=== PATIENT | female | born 1975 | race African-American/Black ===

== ENCOUNTER 2018-10-09 20:35 | Emergency (ER) | payer OTHER ==
[~2018-10-09] VITALS: Ht 167.6 cm; Wt 154.2 kg
[~2018-10-09 20:35] MED LIST: BACITRACIN ZIN1 EACH TOPIC; CEPHALEXIN500 MG PO; GUAIFENESIN DM118 M1 PO; IBUPROFEN600 MG PO; NKM; PEPCID40 MG PO
[2018-10-09 21:00] VITALS: BP 126/76
[2018-10-09] MEDS ORDERED: NKM (21:01)
[2018-10-09] MEDS ORDERED: Albuterol/Ipratropium 3ml neb HHN ONE (21:15)
--- NOTE | 2018-10-09 21:17 | Emergency Room Report ---
History of Present Illness General Chief Complaint: Upper Respiratory Illness Source: Patient Present Illness HPI Is a 42-year-old female presented after increased congestion and difficulty breathing. Patient prior history of asthma. She had been diagnosed approximate 1 year ago. She had been noted to have increased difficulty with breathing. She has increased nonproductive cough. She had been taking albuterol without much improvement. Patient was taking albuterol as well as inhaled corticosteroid. She denies any fever.She denies any other medical conditions. Allergies: Coded Allergies: No Known Allergies (Unverified , 08/09/12) Patient History Past Medical History: see triage record Last Menstrual Period: 09/26/2018 Now: No Reviewed Nursing Documentation: PMH: Agreed; PSxH: Agreed Nursing Documentation-PMH Past Medical History: No History, Except For Review of Systems All Other Systems: negative except mentioned in HPI Physical Exam Vital Signs Date Time Temp Pulse Resp B/P (MAP) Pulse Ox O2 Delivery O2 Flow Rate FiO2 10/09/18 20:56 98.2 97 16 126/76 98 Room Air General Appearance: well appearing, no apparent distress, alert, GCS 15, obese Head: normocephalic, atraumatic ENT: hearing grossly normal, normal voice Neck: full range of motion, supple Respiratory: no respiratory distress, speaking full sentences, wheezing Cardiovascular #1: normal inspection, regular rate, rhythm, edema Gastrointestinal: normal inspection, normal bowel sounds, non tender, soft Musculoskeletal: normal inspection, no calf tenderness Neurologic: normal inspection, alert, oriented x3, responsive, normal gait Psychiatric: mood/affect normal Skin: no rash Medical Decision Making Diagnostic Impression: Primary Impression: Upper respiratory infection Additional Impression: Asthma ER Course Patient presented for cough and difficulty breathing. Differential diagnosis included but was not limited to bronchitis, pneumonia, pulmonary embolism, pericarditis, asthma, foreign body. Patient is given nebulized albuterol with improvement. Patient was given steroids. Repeat lung exam showed improved breath sounds.Patient given prescription for medications for asthma. Patient advised to follow-up with her primary care physician for recheck. Last Vital Signs Date Time Temp Pulse Resp B/P (MAP) Pulse Ox O2 Delivery O2 Flow Rate FiO2 10/09/18 20:56 98.2 97 16 126/76 98 Room Air Status: improved Disposition: HOME, SELF-CARE Condition: Stable Scripts Prednisone* (PREDNISONE*) 20 Mg Tablet 40 MG ORAL DAILY, #10 TAB Prov: Tye Verduzco MD 10/09/18 Guaifenesin/Dextromethorphan (Guaifenesin Dm Syrup) 5 Ml Syrup 1 TSP ORAL Q8H, #118 ML 0 Refills Prov: Tye Verduzco MD 10/09/18 Tye Verduzco MD Oct 09, 2018 21:17
[2018-10-09] MEDS ORDERED: PREDNISONE20 MG ORAL (21:18)
[2018-10-09] MEDS ORDERED: GUAIFENESIN DM118 M1 ORAL (21:18)
[2018-10-10 00:20] VITALS: BP 126/76
--- NOTE | 2018-10-10 00:20 | NUR ---
ER DISCHARGE NOTE: Patient is cleared to be discharged per ERMD, pt is aox4, on room air, with stable vital signs. Accompanied by family member. pt was given dc and prescription instructions, pt was able to verbalize understanding, pt id band and iv site removed without complications. pt is able to ambulate with steady gait. pt took all belongings.
== END 2018-10-10 00:20 | disposition home or self-care (01) ==
LOC: EMR 21:14
DX: J06.9 Acute upper respiratory infection, unspecified (principal); J45.909 Unspecified asthma, uncomplicated
CPT/HCPCS: 81025; 94640; 94664; 99284; J7620

== ENCOUNTER 2020-02-24 16:32 | Emergency (ER) | payer OTHER ==
[~2020-02-24] VITALS: Ht 167.6 cm; Wt 172.4 kg
[~2020-02-24 16:32] MED LIST changes: +GUAIFENESIN DM118 M1 ORAL; +PREDNISONE20 MG ORAL
[2020-02-24 16:53] VITALS: BP 148/72
--- NOTE | 2020-02-24 16:57 | Emergency Room Report ---
History of Present Illness General Chief Complaint: Upper Respiratory Illness Source: Patient Present Illness HPI 44-year-old female, past mostly of asthma never been intubated never been placed in ICU presents with shortness of breath chest tightness since 02/15/2020 patient states she had a positive COVID test she has been having cough, subjective fever/chills, patient states her children are also sick, patient presents for evaluation and treatment she denies any aggravating relieving factors of the shortness of breath severity is moderate, constant no nausea no vomiting no abdominal pain Allergies: Coded Allergies: No Known Allergies (Unverified , 08/09/12) COVID-19 Screening Contact w/high risk pt: No Experienced COVID-19 symptoms?: Yes COVID-19 Testing 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: Yes - 02/15/20 COVID-19 Screening: Positive COVID-19 COVID-19 Testing Source: Nasopharynx Patient History Past Medical History: see triage record Last Menstrual Period: 01/31/20 Now: No Reviewed Nursing Documentation: PMH: Agreed; PSxH: Agreed Nursing Documentation-PMH Hx Asthma: Yes Review of Systems All Other Systems: negative except mentioned in HPI Physical Exam Vital Signs Date Time Temp Pulse Resp B/P (MAP) Pulse Ox O2 Delivery O2 Flow Rate FiO2 02/24/20 16:46 98.8 89 20 152/76 (101) 99 Room Air Sp02 EP Interpretation: reviewed, normal General Appearance: well appearing, no apparent distress, alert Head: normocephalic, atraumatic Eyes: bilateral eye PERRL, bilateral eye EOMI ENT: uvula midline, moist mucus membranes Neck: supple, thyroid normal, supple/symm/no masses Respiratory: no respiratory distress, no retraction, no accessory muscle use, decreased breath sounds Cardiovascular #1: normal peripheral pulses, regular rate, rhythm, no edema, no gallop, no murmur Gastrointestinal: non tender, soft, no guarding, no rebound Musculoskeletal: normal inspection Neurologic: alert, oriented x3 Psychiatric: mood/affect normal Skin: no rash, warm/dry Medical Decision Making Diagnostic Impression: Primary Impression: COVID-19 ER Course 44-year-old female presents with shortness of breath differential diagnosis includes asthma exacerbation, COVID-19, pneumonia Patient was offered admission due to her respiratory shortness of breath and having a positive COVID test, patient states she cannot be admitted she states she has to take care of her kids at home she just wants a work-up some supportive treatment and to go home Chest x-ray ordered, bilateral opacities noted, EKG normal sinus rhythm, labs unremarkable patient given Decadron, and Combivent with improvement in sob Strict return precautions were discussed, patient was offered admission, but patient has to take care of kids. Laboratory Tests Test 02/24/20 17:10 White Blood Count 5.4 K/UL (4.8-10.8) Red Blood Count 4.73 M/UL (4.20-5.40) Hemoglobin 13.6 G/DL (12.0-16.0) Hematocrit 43.1 % (37.0-47.0) Mean Corpuscular Volume 91 FL (80-99) Mean Corpuscular Hemoglobin 28.7 PG (27.0-31.0) Mean Corpuscular Hemoglobin Concent 31.6 G/DL (32.0-36.0) L Red Cell Distribution Width 14.2 % (11.6-14.8) Platelet Count 308 K/UL (150-450) Mean Platelet Volume 5.8 FL (6.5-10.1) L Neutrophils (%) (Auto) 39.9 % (45.0-75.0) L Lymphocytes (%) (Auto) 46.4 % (20.0-45.0) H Monocytes (%) (Auto) 12.5 % (1.0-10.0) H Eosinophils (%) (Auto) 0.6 % (0.0-3.0) Basophils (%) (Auto) 0.6 % (0.0-2.0) Sodium Level 144 MMOL/L (136-145) Potassium Level 4.1 MMOL/L (3.5-5.1) Chloride Level 108 MMOL/L (98-107) H Carbon Dioxide Level 32 MMOL/L (21-32) Anion Gap 4 mmol/L (5-15) L Blood Urea Nitrogen 14 mg/dL (7-18) Creatinine 1.0 MG/DL (0.55-1.30) Estimated Glomerular Filtration Rate > 60 mL/min (>60) Glucose Level 92 MG/DL (74-106) Calcium Level 9.4 MG/DL (8.5-10.1) Total Bilirubin 0.3 MG/DL (0.2-1.0) Aspartate Amino Transferase (AST) 37 U/L (15-37) Alanine Aminotransferase (ALT) 34 U/L (12-78) Alkaline Phosphatase 81 U/L (46-116) Troponin I 0.000 ng/mL (0.000-0.056) Total Protein 7.6 G/DL (6.4-8.2) Albumin 3.5 G/DL (3.4-5.0) Globulin 4.1 g/dL Albumin/Globulin Ratio 0.9 (1.0-2.7) L EKG Diagnostic Results EKG Time: 17:00 EP Interpretation: NSR, rate 76, QTc 425, no acute ST elevations, normal axis Rhythm Strip Diag. Results Rhythm Strip Time: 17:03 EP Interpretation: yes Rate: 80 Rhythm: NSR, no PVC's, no ectopy Chest X-Ray Diagnostic Results Chest X-Ray Diagnostic Results : Chest X-Ray Ordered: Yes # of Views/Limited/Complete: 1 View Indication: Shortness of Breath EP Interpretation: Yes Interpretation: other - Bilateral infiltrates Impression: Other - Bilateral infiltrates Electronically Signed by: Wellington Miramontes MD Last Vital Signs Date Time Temp Pulse Resp B/P (MAP) Pulse Ox O2 Delivery O2 Flow Rate FiO2 02/24/20 16:54 84 22 Room Air 02/24/20 16:53 98.8 148/72 97 Disposition: HOME, SELF-CARE Condition: Stable Scripts Albuterol Sulfate* (Albuterol Sulfate Hfa*) 8.5 Gm Hfa.aer.ad 4 PUFF INH Q6H PRN for Shortness of Breath, #1 INH Prov: Wellington Miramontes MD 02/24/20 Prednisone* (PREDNISONE*) 50 Mg Tablet 50 MG ORAL DAILY, #4 TAB 0 Refills Prov: Wellington Miramontes MD 02/24/20 Referrals: [facility] Robbins [facility] Patient Instructions: Community-Acquired Pneumonia, Adult, [id number] Additional Instructions: YOU HAVE A VIRAL COVID 19 PNEUMONIA, IF YOU GET WORSE PLEASE RETURN TO THE ED. The patient was provided with discharge instructions, notified to follow-up with a primary care doctor and or specialist in the next 24-48 hours, and to return to the ED if they have worsening of their symptoms. Please note that this report is being documented using DRAGON technology. This can lead to erroneous entry secondary to incorrect interpretation by the dictating instrument. Wellington Miramontes MD Feb 24, 2020 16:57
[2020-02-24] MEDS ORDERED: ALBUTEROL SULF8.5 G1 INH (17:03)
[2020-02-24] MEDS ORDERED: PREDNISONE50 MG ORAL (17:03)
[2020-02-24 17:21] LABS: BASOPHILS % (AUTO) 0.6 % (0.0-2.0); EOSINOPHILS % (AUTO) 0.6 % (0.0-3.0); HEMATOCRIT 43.1 % (37.0-47.0); HEMOGLOBIN 13.6 G/DL (12.0-16.0); LYMPHOCYTES % (AUTO) 46.4 % (20.0-45.0); MEAN CORPUSCULAR VOLUME 91 FL (80-99); MONOCYTES % (AUTO) 12.5 % (1.0-10.0); NEUTROPHILS % (AUTO) 39.9 % (45.0-75.0); PLATELET COUNT 308 K/UL (150-450); RED BLOOD COUNT 4.73 M/UL (4.20-5.40); RED CELL DISTRIBUTION WIDTH 14.2 % (11.6-14.8); WHITE BLOOD COUNT 5.4 K/UL (4.8-10.8)
[2020-02-24 17:31] LABS: ANION GAP 4 mmol/L (5-15); BLOOD UREA NITROGEN 14 mg/dL (7-18); CALCIUM 9.4 MG/DL (8.5-10.1); CARBON DIOXIDE 32 MMOL/L (21-32); CHLORIDE 108 MMOL/L (98-107); POTASSIUM 4.1 MMOL/L (3.5-5.1); SODIUM 144 MMOL/L (136-145)
[2020-02-24 17:36] LABS: ALANINE AMINOTRANSFERASE 34 U/L (12-78); ALBUMIN 3.5 G/DL (3.4-5.0); ALBUMIN/GLOBULIN RATIO 0.9 (1.0-2.7); ALKALINE PHOSPHATASE 81 U/L (46-116); ASPARTATE AMINO TRANSFERASE 37 U/L (15-37); BILIRUBIN,TOTAL 0.3 MG/DL (0.2-1.0)
[2020-02-24 17:53] VITALS: BP 136/72
[2020-02-24 18:00] VITALS: BP 136/72
--- NOTE | 2020-02-25 10:15 | Diagnostic Imaging Report ---
Procedure: XRAY Chest 1v Reason for study: Reason For Exam: COUGH Comparison films: 05/11/2013. FINDINGS: A single one view chest is obtained. Vascularity is normal. Hazy bilateral infiltrates noted. Cardiac and mediastinal silhouette are within normal limits. CP angles are sharp. The bony thorax appear unremarkable. IMPRESSION: Hazy bilateral infiltrates.
== END 2020-02-24 17:53 | disposition home or self-care (01) ==
LOC: EMR 16:45
DX: U07.1 COVID-19 (principal)
CPT/HCPCS: 36415; 71045; 80053; 84484; 85025; 93005; 99283; J8540